=== PATIENT | male | born 1935 | race Caucasian/White ===

== ENCOUNTER 2017-07-15 17:09 | Emergency (ER) | payer MEDICARE, OTHER ==
[~2017-07-15] VITALS: Ht 154.9 cm; Wt 95.3 kg
[2017-07-15] MEDS ORDERED: PLAVIX75 M1 PO (17:18)
[2017-07-15] MEDS ORDERED: IMDUR SA60 MG PO (17:19)
[2017-07-15] MEDS ORDERED: ASPIRIN CHEWABL81 MG PO (17:19)
[2017-07-15] MEDS ORDERED: QUINAPRIL20 MG PO (17:19)
[2017-07-15] MEDS ORDERED: ATENOLOL50 M1 PO (17:19)
[2017-07-15 18:49] LABS: BASO % 0.5 % (0.0-1.0); EOS # 0.3 10*3/uL (0.0-0.4); EOS % 4.5 % (1.0-4.0); HEMATOCRIT 40.8 % (42.0-52.0); HEMOGLOBIN 13.8 g/dl (14.0-18.0); LYMPH # 0.9 10*3/uL (1.3-4.4); LYMPH % 14.1 % (27.0-41.0); MEAN CELL VOLUME 90.5 fl (80.0-94.0); MEAN CORPUSCULAR HGB 30.6 pg (27.0-31.0); MEAN CORPUSCULAR HGB CONC 33.8 g/dl (33.0-37.0); MEAN PLATELET VOLUME 9.7 fl (9.6-12.3); MONO # 1.2 10*3/uL (0.1-1.0); MONO % 18.2 % (3.0-9.0); NEUT % 62.4 % (47.0-73.0); PLATELET COUNT AUTOMATED 132 10*3/uL (130-400); RED BLOOD COUNT 4.51 10*6/uL (4.50-5.90); RED CELL DISTRI WIDTH 13.2 % (0-14.5); WHITE BLOOD COUNT 6.4 10*3/uL (4.8-10.8)
[2017-07-15 19:11] LABS: ALBUMIN 3.5 gm/dl (3.1-4.5); CREATININE 1.69 mg/dL (0.70-1.30); POTASSIUM 4.2 mmol/L (3.5-5.1); TOTAL PROTEIN 6.4 gm/dL (6.4-8.2)
[2017-07-15] MEDS ORDERED: DELTASONE20 M1 PO (20:46)
[2017-07-15] MEDS ORDERED: ZITHROMAX250 MG PO (20:46)
== END 2017-07-15 20:46 | disposition home or self-care (01) ==
LOC: ED 17:09
PROVIDERS: Physician Assistant
DX: J40 Bronchitis, not specified as acute or chronic (principal); Z79.899 Other long term (current) drug therapy; Z79.82 Long term (current) use of aspirin

== ENCOUNTER 2019-06-17 16:25 | Inpatient (IN) | payer MEDICARE, OTHER ==
[~2019-06-17] VITALS: Ht 180.3 cm; Wt 99.0 kg
[~2019-06-17 16:25] MED LIST: ASPIRIN CHEWABL81 MG PO; ATENOLOL50 M1 PO; DELTASONE20 M1 PO; IMDUR SA60 MG PO; PLAVIX75 M1 PO; QUINAPRIL20 MG PO; ZITHROMAX250 MG PO
[2019-06-17 16:34] VITALS: BP 98/50
[2019-06-17 17:07] LABS: BASO % 0.4 % (0.0-1.0); EOS # 0.1 10*3/uL (0.0-0.4); EOS % 0.7 % (1.0-4.0); HEMOGLOBIN 15.8 g/dl (14.0-18.0); LYMPH # 1.4 10*3/uL (1.3-4.4); LYMPH % 12.2 % (27.0-41.0); MEAN CORPUSCULAR HGB 30.2 pg (27.0-31.0); MEAN CORPUSCULAR HGB CONC 34.3 g/dl (33.0-37.0); MEAN PLATELET VOLUME 9.6 fl (9.6-12.3); MONO % 8.6 % (3.0-9.0); NEUT # 8.8 10*3/uL (2.3-7.9); NEUT % 77.7 % (47.0-73.0); PLATELET COUNT AUTOMATED 201 10*3/uL (130-400); RED BLOOD COUNT 5.23 10*6/uL (4.50-5.90); RED CELL DISTRI WIDTH 13.5 % (0-14.5); WHITE BLOOD COUNT 11.3 10*3/uL (4.8-10.8)
[2019-06-17 17:23] LABS: ACT PARTIAL THROMBO TIME 26.8 SECONDS (20.0-32.1)
[2019-06-17 17:27] LABS: ALBUMIN 3.4 gm/dl (3.1-4.5); ALKALINE PHOSPHATASE 96 U/L (45-117); BUN 27 mg/dl (7-24); CHLORIDE 104 mmol/L (98-107); CREATININE 2.06 mg/dL (0.70-1.30); POTASSIUM 3.7 mmol/L (3.5-5.1); SGOT/AST 28 IU/L (3-35); SGPT/ALT 39 U/L (12-78); SODIUM 138 mmol/L (136-145); TOTAL PROTEIN 7.1 gm/dL (6.4-8.2)
[2019-06-17 17:28] LABS: TROPONIN I < 0.015 ng/ml (<0.045)
[2019-06-17 17:30] VITALS: BP 98/52
[2019-06-17] MEDS ORDERED: MULTIVITAMINS1 EAC5 PO (18:18)
[2019-06-17] MEDS ORDERED: TRIAMTERENE & H1 CAP PO (18:19)
[2019-06-17 18:39] VITALS: BP 94/54
[2019-06-17 20:00] VITALS: BP 105/65
--- NOTE | 2019-06-17 20:20 | NUR ---
A 83, admitted to , under the services of ANGELA Brownlee DO with a diagnosis of HYPOXIA, PNEUMONIA. Chief complaint is SOB. Patient arrived via ambulatory from ER. Monitor applied. Initial assessment completed. Vital signs taken and recorded. ANGELA BROWNLEE DO notified of admission to the unit. Orders received. See assessment for past medical history, medications and allergies. Patient and/or family oriented to unit. [facility] visitation policy reviewed. Clothing/patient valuable form completed. TORREY HOBSON
[2019-06-17 20:25] VITALS: BP 98/60
--- NOTE | 2019-06-17 20:55 | NUR ---
DR. BARTLETT NOTIFIED OF PT'S MED REC UTD.
[2019-06-18] VITALS: BP 147/91
--- NOTE | 2019-06-18 04:25 | NUR ---
Patient resting quietly with no c/o discomfort. Respirations easy and regular. Vital signs stable. No overt distress. SAMMY LUCIO
[2019-06-18 06:53] LABS: BASO % 0.1 % (0.0-1.0); HEMATOCRIT 43.1 % (42.0-52.0); HEMOGLOBIN 14.8 g/dl (14.0-18.0); LYMPH # 0.7 10*3/uL (1.3-4.4); LYMPH % 9.4 % (27.0-41.0); MEAN CELL VOLUME 88.5 fl (80.0-94.0); MEAN CORPUSCULAR HGB 30.4 pg (27.0-31.0); MEAN CORPUSCULAR HGB CONC 34.3 g/dl (33.0-37.0); MEAN PLATELET VOLUME 9.8 fl (9.6-12.3); MONO # 0.1 10*3/uL (0.1-1.0); MONO % 1.3 % (3.0-9.0); NEUT # 6.7 10*3/uL (2.3-7.9); NEUT % 88.5 % (47.0-73.0); PLATELET COUNT AUTOMATED 170 10*3/uL (130-400); RED BLOOD COUNT 4.87 10*6/uL (4.50-5.90); RED CELL DISTRI WIDTH 13.6 % (0-14.5); WHITE BLOOD COUNT 7.5 10*3/uL (4.8-10.8)
[2019-06-18 07:23] LABS: ALBUMIN 3.1 gm/dl (3.1-4.5); CREATININE 1.63 mg/dL (0.70-1.30); PHOSPHOROUS 2.7 mg/dL (2.5-4.9); POTASSIUM 3.9 mmol/L (3.5-5.1); TOTAL PROTEIN 6.8 gm/dL (6.4-8.2)
[2019-06-18 07:29] LABS: THYROID STIM HORMONE (HS) 0.182 uIU/ml (0.358-4.75)
[2019-06-18 07:42] VITALS: BP 140/90
--- NOTE | 2019-06-18 08:04 | NUR ---
PT. IS PLEASANT AND COOPERATIVE, AND IS UP IN CHAIR EATING BREAKFAST, NO COMPLAINTS OF PAIN AT THIS TIME. YOVANNY RESENDIZ SPMELISSACC
--- NOTE | 2019-06-18 10:08 | NUR ---
PT. IS SITTING IN CHAIR COMFORTABLY, DAUGHTER IS VISITING AT THIS TIME, DENIES ANY DISCOMFORT OR PAIN. YOVANNY JUARES
[2019-06-18 11:30] VITALS: BP 136/74
--- NOTE | 2019-06-18 12:38 | NUR ---
PT. IS UP IN CHAIR COMFORTABLY WATCHING TELEVISON. PT. HAS NO COMPLAINTS AT THIS TIME YOVANNY POLANCO
--- NOTE | 2019-06-18 12:41 | NUR ---
SPEECH PATHOLOGY Nursing screen completed. There are no reports of acute communication or swallowing difficulty therefore speech services are not warranted at this time. This dept. will be available if future needs arise. MOE CHAVEZ MSCCC-CALENDER WORKER HELPER
--- NOTE | 2019-06-18 13:16 | NUR ---
Junior Administrative Assistant in to talk to patient. Patient states lives at HOME with . There are BASEMENT steps in the home. Physician: [facility]: [facility] Home health services: NONE Patient's level of ADLs: INDEPENDENT Patient has working utilities: YES DME: NONE Follow-up physician's appointment after d/c: WILL BE MADE BY HOPITALIST NURSE DIRECTOR ON DISCHARGE Does patient want to access PORTAL?: NO Discharge plan DAUGHTER PRESENT AT BEDSIDE DURING VISIT. PT LIVES AT HOME WITH AND IS INDEPENDENT IN HIS CARE. TALKED WITH BOTH ABOUT HOME HEALTH SERVICES BUT THEY DECLINE AT THIS TIME. PER TOM BOTH PARENTS GET ALONG WELL AT HOME AND HAVE FAMILY TO HELP IF NEEDED. SHE STATES SHE TAKES THEM TO ALL DR APPOINTMENTS. WILL CONTINUE TO FOLLOW. STATES SHE WILL TAKE HIM HOME ON DISCHARGE.. MEJIA JUNIOR
--- NOTE | 2019-06-18 13:40 | NUR ---
PT. IS RESTING IN BED, WITH FAMILY PRESENT, DENIES ANY PAIN AND DISCOMFORT AT THIS TIME. YOVANNY RESENDIZ SPCC
[2019-06-18 16:00] VITALS: BP 140/80
[2019-06-18 20:00] VITALS: BP 136/67
[2019-06-19] VITALS: BP 148/66
--- NOTE | 2019-06-19 06:00 | NUR ---
WALKED IN TO FIND THAT THE PATIENT HAD RIPPED OUT HIS IV IN THE RIGHT FOREARM. PATIENT WAS VERY CONFUSED ABOUT WHERE HE WAS AT AND WHAT WAS GOING ON. HE HAD JUST WOKEN UP. I REORIENTED THE PATIENT TO LOCATION AND REASON FOR BEING IN THE HOSPITAL. PATIENT THEN SEEMED TO UNDERSTAND. HE WAS ABLE TO STATE HIS NAME AND WHAT YEAR IT WAS. AFTER GETTING SITUATED IN BED AGAIN HE WAS ABLE TO STATE WHERE HE WAS. NOTIFIED DR AVILES OF CHANGE IN PATIENT'S MENTAL STATUS. NO ORDERS RECIEVED. WILL CONTINUE TO MONITOR THE PATIENT.
[2019-06-19 07:05] LABS: HEMATOCRIT 42.6 % (42.0-52.0); HEMOGLOBIN 14.4 g/dl (14.0-18.0); MEAN CELL VOLUME 89.3 fl (80.0-94.0); MEAN CORPUSCULAR HGB 30.2 pg (27.0-31.0); MEAN CORPUSCULAR HGB CONC 33.8 g/dl (33.0-37.0); MEAN PLATELET VOLUME 9.6 fl (9.6-12.3); PLATELET COUNT AUTOMATED 182 10*3/uL (130-400); RED BLOOD COUNT 4.77 10*6/uL (4.50-5.90); RED CELL DISTRI WIDTH 13.6 % (0-14.5); WHITE BLOOD COUNT 12.4 10*3/uL (4.8-10.8)
[2019-06-19 07:32] LABS: PLATELET SUFFICIENCY NORMAL (NORMAL); POLYCHROMASIA SLIGHT; TOTAL CELLS COUNTED 100 #CELLS
[2019-06-19 07:37] LABS: CREATININE 1.51 mg/dL (0.70-1.30); PHOSPHOROUS 2.6 mg/dL (2.5-4.9); POTASSIUM 3.8 mmol/L (3.5-5.1)
--- NOTE | 2019-06-19 08:00 | NUR ---
PT DISORIENTED. UNSURE OF WHY HE IS HERE BECOMING TEARFUL AND FEARFUL OF THE UNKNOWN TO HIM. REORIENTATION GIVEN AND REASSURANCE. PT MOVED TO [address] WHICH IS CLOSER ROOM TO NURSES STATION AND HIS DAUGHTER SANJU WAS CALLED AND SHE STATED SHE WILL COME SIT WITH HIM FOR REASSURANCE.
[2019-06-19 12:00] VITALS: BP 169/68
[2019-06-19 16:00] VITALS: BP 136/78
[2019-06-19 20:00] VITALS: BP 138/82
--- NOTE | 2019-06-19 20:00 | NUR ---
Patient resting quietly with no c/o or s/s of discomfort. Respirations easy and regular. Vital signs stable. No overt distress. Family at bedside. 2L oxygen via nasal cannula intact. Bed alarm on. Call light within reach. PEPPER MONSIVAIS
--- NOTE | 2019-06-19 23:06 | NUR ---
24 HR chart check completed.
[2019-06-20] VITALS: BP 147/82
--- NOTE | 2019-06-20 02:12 | NUR ---
Patient sleeping. Respirations relaxed and easy. Siderails up . [place] on. Oxygen intact. Call light within reach. Bed alarm on. No s/s of distress noted. HISSOM,PEPPER
--- NOTE | 2019-06-20 05:50 | NUR ---
PT COMPLAINS OF 6/10 THROBBING HEADACHE. MEDICATED PER ORDER. WILL MONITOR FOR RELIEF. VOICES NO OTHER CONCERNS AT THIS TIME. RESTING IN BED. BED ALARM ON. CALL LIGHT WITHIN REACH.
--- NOTE | 2019-06-20 06:43 | NUR ---
PT STATES HEADACHE IS MUCH BETTER
[2019-06-20 08:00] VITALS: BP 169/78
[2019-06-20 12:00] VITALS: BP 160/82
--- NOTE | 2019-06-20 13:05 | NUR ---
PATIENT MEDICATED WITH NORCO AT THIS TIME FOR COMPLAINTS OF HEADACHE AND BACK PAIN. WILL MONITOR FOR EFFECTIVENESS.
[2019-06-20 16:00] VITALS: BP 160/90
[2019-06-20 20:00] VITALS: BP 118/70
--- NOTE | 2019-06-20 22:44 | NUR ---
Patient resting quietly with no c/o or s/s ofdiscomfort. Respirations easy and regular. Vital signs stable. No overt distress. 2L oxygen via nasal cannula intact. Bed alarm on. Call light within reach. PEPPER MONSIVAIS
[2019-06-21] VITALS: BP 140/82
--- NOTE | 2019-06-21 00:53 | NUR ---
24 HR chart check completed.
--- NOTE | 2019-06-21 03:14 | NUR ---
Patient resting in recliner. Respirations easy and non labored. Voices no concerns at this time. 3L oxygen via nasal cannula intact. Call light within reach. PEPPER MONSIVAIS
[2019-06-21 08:00] VITALS: BP 139/85
--- NOTE | 2019-06-21 09:05 | NUR ---
PHYSICAL THERAPY Nathaniel completed low level of complexity 57311 recomend home with HH and family assist/supervision for safety, with life alert. Discussed at length with mulu diggs concerns for cognition/stairs. Full report to follow PT to work on transfers,amb, balance and steps. Ese Parikh PT
--- NOTE | 2019-06-21 09:10 | NUR ---
Occupational Therapy evaluation completed on 4 with full eval to follow. Precautions include low vision deficits, KALTAG,fall risk d/t poor vision,recent oxygen use,IV UE, low complexity level 28536 via chart review, testing and evaluation. Recommend OT per POC, home with home health; SN, OT,PT, life line referral, [employer] referral and home w/ supervision and assist. Thank you. Rowena Warren OTR/Carol
--- NOTE | 2019-06-21 10:05 | NUR ---
PATIENT WAS EVALUATED FOR USE OF HOME OXYGEN. AT REST ON ROOM AIR PATIENTS VITALS WERE: BLOOD PRESSURE-139/85, HEART RATE -82, RESPIRATORY RATE 20 SPO2:93%. DURING AMBULATION THE PATIENT WAS ABLE TO MAINTAIN AN SPO2 OF 91-94% WITH MINAMAL SIGNS OF SHORTNESS OF BREATH. HEART DURING THE TEST WAS AROUND 105-106 BPM. PATIENT DID NOT QUALIFY FOR HOME OXYGEN.
--- NOTE | 2019-06-21 11:30 | NUR ---
TALKED WITH PT AND DAUGHTER AND DISCUSSED DISCHARGE NEEDS WITH THEM. PER DAUGHTER THEY DO NOT WANT HIM TO GO TO A SNF NOW. TALKED WITH THEM ABOUT HOME HEALTH. SHE STATES THAT MOTHER WOULD NOT ALLOW HOME HEALTH TO COME INTO HOUSE AND THAT THEY WILL PASS ON THAT TOO. DID EXPRESS INTEREST IN [facility] AND GAVE THEM NUMBER TO CALL FOR MORE INFORMATIN. WILL CONTINUE TO FOLLOW.
--- NOTE | 2019-06-21 11:45 | NUR ---
PHYSICAL THERAPY Seen later in AM to assess steps due to time contraints early AM. Performed 6 steps with HR on L cg x 1 and occ cues to do one step at a time for safety. Sats pre 93-94% had mild SOB after 6 steps therefore came back down oxygen level 86-87 % R hand improved to 89 with breathing tech pulse ox then switched to L hand sats reading 93%. Spoke with Nsg, CM, and Resp. Will f/u at 1:00 w respiratory to monitor oxygen on stairs with their unit. Dgtr present w session again discussed pt not doing stairs at home and allowing family to do laundry and bring up clothes however per dgtr he will do them either way. Will have resp assess oxygen level and discuss w MD as approp. Ese Parikh PT
[2019-06-21 12:00] VITALS: BP 153/52
--- NOTE | 2019-06-21 13:22 | NUR ---
PHYSICAL THERAPY Transfer supervision, perfomred 12 steps cga x 1 with HR on L non reciprocal Resp Therapiat (Ronan) using their pulse ox unit to monitor. Sats after performing steps 90% mild SOB. Dgtr present feels her father is at his baseline with amb/steps. Ed on stairs again recomending clothes/laundry be brought to main floor. Will have supervision at home and considering HH will follow Ese Parikh PT
[2019-06-21] MEDS ORDERED: ZITHROMAX250 MG PO (14:29)
[2019-06-21] MEDS ORDERED: PREDNISONE10 MG PO (14:29)
--- NOTE | 2019-06-21 15:00 | NUR ---
RECEIVED A ORDER FOR HOME HEALTH FOR PT, BACK TO ROOM TO TALK WITH PT AND DAUGHTER THEY STILL ARE REFUSING TO HAVE HOME HEALTH AND WILL NOT PICK A COMPANY.
--- NOTE | 2019-06-21 15:14 | NUR ---
Discharge instructions reviewed with patient/family. Patient receptive and verbalizes understanding. Follow-up care arranged. Written instructions given to patient/family. Patient and daughter were educated on new prescriptions and to follow up with pcp one week post discharge. Patient was wheeled from unit by staff member with all personal belongings accounted for. HORTENSIA NICOLAS
== END 2019-06-21 15:14 | disposition home or self-care (01) | DRG 177 ==
LOC: ED 16:25 → EDHOLD 18:12 → 4E 18:12
PROVIDERS: Internal Medicine; Physician Assistant; Student in an Organized Health Care Education/Training Program; ADMIT Family Medicine
DX: J15.6 Pneumonia due to other Gram-negative bacteria (principal); N17.0 Acute kidney failure with tubular necrosis; J44.1 Chronic obstructive pulmonary disease with (acute) exacerbation; J44.0 Chronic obstructive pulmonary disease with (acute) lower respiratory infection; I12.9 Hypertensive chronic kidney disease with stage 1 through stage 4 chronic kidney disease, or unspecified chronic kidney disease; N18.9 Chronic kidney disease, unspecified; E66.9 Obesity, unspecified; R09.02 Hypoxemia; I95.9 Hypotension, unspecified; R73.9 Hyperglycemia, unspecified; E83.41 Hypermagnesemia; Z95.5 Presence of coronary angioplasty implant and graft; I25.2 Old myocardial infarction; Z68.30 Body mass index [BMI] 30.0-30.9, adult; Z85.828 Personal history of other malignant neoplasm of skin; Z82.0 Family history of epilepsy and other diseases of the nervous system; Z83.3 Family history of diabetes mellitus; Z80.8 Family history of malignant neoplasm of other organs or systems; Z79.82 Long term (current) use of aspirin; Z79.899 Other long term (current) drug therapy; Z79.02 Long term (current) use of antithrombotics/antiplatelets

== ENCOUNTER 2022-03-03 14:10 | Emergency (ER) | payer MEDICARE, OTHER ==
[~2022-03-03] VITALS: Ht 180.3 cm; Wt 95.3 kg
[~2022-03-03 14:10] MED LIST changes: +MULTIVITAMINS1 EAC5 PO; +PREDNISONE10 MG PO; +TRIAMTERENE & H1 CAP PO
[2022-03-03 14:55] LABS: BASO % 0.5 % (0.0-1.0); EOS # 0.1 10*3/uL (0.0-0.4); EOS % 1.5 % (1.0-4.0); HEMATOCRIT 41.2 % (42.0-52.0); LYMPH # 1.2 10*3/uL (1.3-4.4); LYMPH % 16.1 % (27.0-41.0); MEAN CELL VOLUME 84.9 fl (80.0-94.0); MEAN CORPUSCULAR HGB 29.9 pg (27.0-31.0); MEAN CORPUSCULAR HGB CONC 35.2 g/dl (33.0-37.0); MEAN PLATELET VOLUME 9.5 fl (9.6-12.3); MONO # 0.9 10*3/uL (0.1-1.0); MONO % 11.8 % (3.0-9.0); NEUT # 5.1 10*3/uL (2.3-7.9); NEUT % 69.8 % (47.0-73.0); PLATELET COUNT AUTOMATED 145 10*3/uL (130-400); RED BLOOD COUNT 4.85 10*6/uL (4.50-5.90); RED CELL DISTRI WIDTH 13.9 % (0-14.5); WHITE BLOOD COUNT 7.3 10*3/uL (4.8-10.8)
[2022-03-03 15:17] LABS: CREATININE 1.53 mg/dL (0.70-1.30); POTASSIUM 3.7 mmol/L (3.5-5.1)
[2022-03-03] MEDS ORDERED: AMOX-CLAV 875-1 EACH PO (20:52)
[2022-03-03] MEDS ORDERED: OCUFLOX 0.3% 5 M5 ML OPH (20:52)
== END 2022-03-03 21:07 | disposition home or self-care (01) ==
LOC: ED 14:10
PROVIDERS: Nurse Practitioner Family
DX: T15.01XA Foreign body in cornea, right eye, initial encounter (principal); L03.213 Periorbital cellulitis; Z88.6 Allergy status to analgesic agent; Z79.899 Other long term (current) drug therapy; Z79.82 Long term (current) use of aspirin; Z98.890 Other specified postprocedural states; X58.XXXA Exposure to other specified factors, initial encounter; Y93.89 Activity, other specified; Y92.89 Other specified places as the place of occurrence of the external cause; Y99.8 Other external cause status

== ENCOUNTER → 2023-01-07 | Outpatient (CLI) | payer MEDICARE, OTHER ==
[~2023-01-07] MED LIST changes: +AMOX-CLAV 875-1 EACH PO; +ELIQUIS2.5 M1 PO; +FLOMAX0.4 MG PO; +NAMENDA5 M1 PO; +OCUFLOX 0.3% 5 M5 ML OPH; +OCUVITE ADULT1 EAC3 PO; +PROTONIX40 MG PO; +RIVASTIGMINE TAR3 M1 PO; +VITAMIN D250 MCG PO
== END ==
LOC: CARD 00:42
PROVIDERS: ATTEND Internal Medicine Cardiovascular Disease
DX: I25.10 Atherosclerotic heart disease of native coronary artery without angina pectoris (principal); I10 Essential (primary) hypertension; I48.92 Unspecified atrial flutter

== ENCOUNTER 2023-02-19 10:48 | Inpatient (IN) | payer MEDICARE, OTHER ==
[~2023-02-19] VITALS: Ht 170.1 cm; Wt 97.1 kg
[2023-02-19 11:03] VITALS: BP 139/67
[2023-02-19 11:39] LABS: BASO % 0.4 % (0.0-1.0); EOS # 0.1 10*3/uL (0.0-0.4); HEMATOCRIT 38.6 % (42.0-52.0); LYMPH # 1.1 10*3/uL (1.3-4.4); MEAN CELL VOLUME 87.5 fl (80.0-94.0); MEAN CORPUSCULAR HGB 29.3 pg (27.0-31.0); MEAN CORPUSCULAR HGB CONC 33.4 g/dl (33.0-37.0); MEAN PLATELET VOLUME 8.9 fl (9.6-12.3); MONO # 0.8 10*3/uL (0.1-1.0); MONO % 10.4 % (3.0-9.0); NEUT # 5.8 10*3/uL (2.3-7.9); NEUT % 73.7 % (47.0-73.0); PLATELET COUNT AUTOMATED 249 10*3/uL (130-400); RED BLOOD COUNT 4.41 10*6/uL (4.50-5.90); RED CELL DISTRI WIDTH 13.7 % (0-14.5); WHITE BLOOD COUNT 7.9 10*3/uL (4.8-10.8)
[2023-02-19 11:53] LABS: ACT PARTIAL THROMBO TIME 32.3 SECONDS (20.0-32.1); INTERNATIONAL NORM RATIO 1.1 (2.0-3.5)
[2023-02-19 12:08] LABS: POTASSIUM 3.5 mmol/L (3.4-5.1); TOTAL PROTEIN 7.1 gm/dL (6.0-8.0)
[2023-02-19 14:09] VITALS: BP 108/66
[2023-02-20 00:29] VITALS: BP 108/66; BP 144/66
[2023-02-20 04:42] VITALS: BP 112/80
[2023-02-20 06:05] LABS: BASO % 0.1 % (0.0-1.0); HEMATOCRIT 38.7 % (42.0-52.0); LYMPH # 0.7 10*3/uL (1.3-4.4); LYMPH % 9.2 % (27.0-41.0); MEAN CELL VOLUME 88.6 fl (80.0-94.0); MEAN CORPUSCULAR HGB 29.1 pg (27.0-31.0); MEAN CORPUSCULAR HGB CONC 32.8 g/dl (33.0-37.0); MEAN PLATELET VOLUME 9.3 fl (9.6-12.3); MONO # 0.3 10*3/uL (0.1-1.0); MONO % 3.6 % (3.0-9.0); NEUT # 6.8 10*3/uL (2.3-7.9); NEUT % 86.6 % (47.0-73.0); PLATELET COUNT AUTOMATED 258 10*3/uL (130-400); RED BLOOD COUNT 4.37 10*6/uL (4.50-5.90); RED CELL DISTRI WIDTH 13.3 % (0-14.5); WHITE BLOOD COUNT 7.9 10*3/uL (4.8-10.8)
[2023-02-20 06:59] LABS: FREE T4 1.29 ng/dl (0.89-1.76); POTASSIUM 4.4 mmol/L (3.4-5.1); TOTAL PROTEIN 6.8 gm/dL (6.0-8.0)
[2023-02-20 07:01] LABS: VITAMIN D, 25-HYDROXY 41.4 ng/mL (30-100)
[2023-02-20 08:00] VITALS: BP 133/76
[2023-02-20] MEDS ORDERED: TRIAMTERENE & H1 CAP PO (11:03)
[2023-02-20] MEDS ORDERED: ELIQUIS2.5 M1 PO (11:03)
== END 2023-02-20 12:04 | disposition short-term general hospital (02) | DRG 193 ==
LOC: ED 10:48 → EDHOLD 13:19
PROVIDERS: Emergency Medicine; Registered Nurse; ADMIT Student in an Organized Health Care Education/Training Program; ATTEND Student in an Organized Health Care Education/Training Program
DX: J18.9 Pneumonia, unspecified organism (principal); N17.0 Acute kidney failure with tubular necrosis; J44.1 Chronic obstructive pulmonary disease with (acute) exacerbation; J91.8 Pleural effusion in other conditions classified elsewhere; J44.0 Chronic obstructive pulmonary disease with (acute) lower respiratory infection; F03.90 Unspecified dementia, unspecified severity, without behavioral disturbance, psychotic disturbance, mood disturbance, and anxiety; I25.10 Atherosclerotic heart disease of native coronary artery without angina pectoris; R91.8 Other nonspecific abnormal finding of lung field; D64.9 Anemia, unspecified; N40.0 Benign prostatic hyperplasia without lower urinary tract symptoms; K21.9 Gastro-esophageal reflux disease without esophagitis; E66.9 Obesity, unspecified; I48.0 Paroxysmal atrial fibrillation; Z88.6 Allergy status to analgesic agent; Z95.5 Presence of coronary angioplasty implant and graft; Z83.3 Family history of diabetes mellitus; Z81.8 Family history of other mental and behavioral disorders; I12.9 Hypertensive chronic kidney disease with stage 1 through stage 4 chronic kidney disease, or unspecified chronic kidney disease; N18.31 Chronic kidney disease, stage 3a